=== PATIENT | male | born 1995 | race African-American/Black ===

== ENCOUNTER 2017-09-03 08:55 | Day surgery (SDC) | payer OTHER ==
[2017-08-28 10:00] LABS: BASOPHIL % 1.8 % (0-2); PLATELET COUNT 240 x10^3mcL (130-400); RED CELL DISTRIBUTION WIDTH 12.6 % (11.5-14.5)
[2017-08-28 10:19] LABS: ALBUMIN 3.7 g/dL (3.4-5.0); ALKALINE PHOSPHATASE 60 U/L (46-116); ALT/SGPT 31 U/L (16-63); AST/SGOT 21 U/L (15-37); BILIRUBIN TOTAL 0.9 mg/dL (0.20-1.00); CALCIUM 8.5 mg/dL (8.5-10.1); CARBON DIOXIDE 24.6 mmol/L (21-32); CHLORIDE SERUM 105 mmol/L (98-107); CREATININE SERUM 0.9 mg/dL (0.7-1.3); GFR1 > 60 mL/min; GLUCOSE SERUM 102 mg/dL (74-106); LACTIC DEHYDROGENASE (LDH) 171 U/L (100-190); PHOSPHOROUS 3.5 mg/dL (2.5-4.9); POTASSIUM SERUM 4.1 mmol/L (3.5-5.1); SODIUM SERUM 139 mmol/L (136-145); TOTAL PROTEIN, SERUM 7.1 g/dL (6.4-8.2)
[2017-08-28 10:22] LABS: CHOLESTEROL 105 mg/dL (<200)
[~2017-09-03] VITALS: Ht 198.1 cm; Wt 99.8 kg
[2017-09-03 09:17] VITALS: BP 144/67
[2017-09-03 14:16] VITALS: BP 128/70
== END 2017-09-03 13:15 | disposition home or self-care (01) ==
LOC: DS 08:55 → OR 11:00 → DS 11:00
PROVIDERS: Surgery
PROC: 0JB10ZZ Excision of Face Subcutaneous Tissue and Fascia, Open Approach (ICD-10-PCS; principal; 2017-09-03 11:00)
DX: L72.0 Epidermal cyst (principal); F12.10 Cannabis abuse, uncomplicated; Z68.26 Body mass index [BMI] 26.0-26.9, adult
CPT/HCPCS: J0690; J2250; J2704; J3010; J3490; J7120

== ENCOUNTER 2018-04-11 20:51 | Emergency (ER) | payer OTHER ==
[~2018-04-11] VITALS: Ht 198.1 cm; Wt 100.9 kg
[2018-04-11 21:15] VITALS: BP 136/81; Ht 198.1 cm; Wt 100.9 kg
== END 2018-04-11 22:04 | disposition home or self-care (01) ==
LOC: ED 20:51
DX: M25.512 Pain in left shoulder (principal); M54.2 Cervicalgia

== ENCOUNTER 2019-10-23 13:39 | Emergency (ER) | payer OTHER ==
[~2019-10-23] VITALS: Ht 198.1 cm; Wt 102.1 kg
[2019-10-23 14:15] VITALS: Ht 198.1 cm; Wt 102.1 kg
[2019-10-23 15:31] LABS: PLATELET COUNT 173 x10^3mcL (130-400); RED CELL DISTRIBUTION WIDTH 12.8 % (11.5-14.5)
[2019-10-23 15:38] LABS: microscopic required? YES; urine erythrocyte NEGATIVE (NEGATIVE)
[2019-10-23 15:43] LABS: TOTAL IRON BINDING CAPACITY 311 ug/dL (250-450)
[2019-10-23 15:44] LABS: IRON 24 ug/dL (65-170)
[2019-10-23 15:48] LABS: CALCIUM 8.3 mg/dL (8.5-10.1); CARBON DIOXIDE 30.3 mmol/L (21-32); CHLORIDE SERUM 103 mmol/L (98-107); GFR1 > 60 mL/min; GLUCOSE SERUM 83 mg/dL (74-106); POTASSIUM SERUM 3.7 mmol/L (3.5-5.1); SODIUM SERUM 141 mmol/L (136-145)
[2019-10-23 15:52] LABS: ALBUMIN 3.6 g/dL (3.4-5.0); ALKALINE PHOSPHATASE 61 U/L (46-116); ALT/SGPT 44 U/L (16-63); AST/SGOT 31 U/L (15-37); BILIRUBIN TOTAL 0.5 mg/dL (0.20-1.00); LIPASE 110 IU/L (73-393); TOTAL PROTEIN, SERUM 7.5 g/dL (6.4-8.2)
[2019-10-23 15:57] LABS: T3 TOTAL 1.41 ng/mL
[2019-10-23 16:03] LABS: ATYPICAL LYMPH 2 %; BAND NEUTROPHIL 4 % (0-10); BASOPHIL 0 % (0-2); METAMYELOCTE 2 % (0-2); MONOCYTE 26 % (0-7); MYELOCYTE 1 % (0-2); SEGMENTED NEUTROPHILS 21 % (37-75)
[2019-10-23 16:04] LABS: PLATELET MORPHOLOGY PLATELETS NORMAL; rbc morphology (normal/abnorm) NORMAL (NORMAL)
[2019-10-23 16:17] LABS: FREE T4 1.06 ng/dL (0.76-1.46); FREE THYROXINE INDEX 2.8 ug/dL (1.4-4.5); T4(THYROXINE) 7.8 ug/dL (4.7-13.3)
[2019-10-23 16:35] VITALS: BP 134/81
== END 2019-10-23 17:00 | disposition home or self-care (01) ==
LOC: ED 13:39
PROVIDERS: Emergency Medicine
DX: B34.9 Viral infection, unspecified (principal); R11.2 Nausea with vomiting, unspecified; G47.00 Insomnia, unspecified; E61.1 Iron deficiency
CPT/HCPCS: 36415; 84439; 87046; 87046-59